=== PATIENT | female | born 1950 | race Caucasian/White ===

== ENCOUNTER 2017-06-12 07:58 | Day surgery (SDC) | payer MEDICARE, OTHER ==
[2017-06-12] MEDS ORDERED: SIMETHICONE 40 MG/0.6 ML ML ONE (08:17)
[2017-06-12] MEDS: MEPERIDINE HCL/PF 100 MG/ML AMP ONE ×2 (09:53→09:56)
[2017-06-12] MEDS: MIDAZOLAM HCL 5 MG/5 ML VIAL ONE ×3 (09:53→10:02)
[2017-06-12 13:24] VITALS: BP_SYST 133
== END 2017-06-12 12:10 | disposition home or self-care (01) ==
LOC: SMU 07:58 → SDS 07:58
PROVIDERS: ATTEND Internal Medicine Gastroenterology
DX: K21.9 Gastro-esophageal reflux disease without esophagitis (principal); K29.70 Gastritis, unspecified, without bleeding; K44.9 Diaphragmatic hernia without obstruction or gangrene; Z79.899 Other long term (current) drug therapy; K58.0 Irritable bowel syndrome with diarrhea; Z68.31 Body mass index [BMI] 31.0-31.9, adult
CPT/HCPCS: 36415; 43239; 82962; 87081; 88305; 88312; 88313; J2175; J2250